=== PATIENT | female | born 1995 | race Caucasian/White ===

== ENCOUNTER → 2020-06-03 08:38 | Outpatient (CLI) | payer OTHER, SELFPAY | PROVIDERS: Visit Provider Physician Assistant | DX: J02.9 Acute pharyngitis, unspecified (principal) | CPT/HCPCS: 87070 ==

== ENCOUNTER → 2022-04-25 09:28 | Outpatient (CLI) | payer OTHER, SELFPAY ==
--- NOTE | 2022-04-25 09:30 | DI.RAD.S_ITS ---
PROCEDURE: XR CERVICAL SPINE 2V OR 3V INDICATIONS: left sided neck pain TECHNIQUE: 3 view(s) of the cervical spine were acquired. COMPARISON: None. FINDINGS: Bones: No fractures or dislocations to the T1 level. Straightening of normal cervical lordosis is seen. The lateral masses of C1 appear intact on the odontoid view. No suspicious bony lesions. Soft tissues: No prevertebral soft tissue swelling. IMPRESSION: Mild straightening of normal cervical lordosis which may be due to neck muscle spasm. No fracture or dislocation. Dictated by: Franklin Brown M.D. on 04/25/2022 at 9:55 Approved by: Franklin Brown M.D. on 04/25/2022 at 9:56
== END ==
PROVIDERS: PCP Internal Medicine; Referring Provider Registered Nurse; Visit Provider Registered Nurse
DX: M54.2 Cervicalgia (principal)
CPT/HCPCS: 72040

== ENCOUNTER 2022-08-29 11:50 | Emergency (ER) | payer OTHER, SELFPAY ==
[2022-08-29 12:01] VITALS: BP 113/76; PULSE 101; RESP 16; TEMP 36.6; O2SAT 97; BMI 27.8
[2022-08-29] MEDS: ONDANSETRON 4 MG ODT SL (12:08)
[2022-08-29 12:39] LABS: Amorphous Sediment Urine 3+; Bacteria Urine Few (2-10); Culture Indicated Urine Specimen Cultured; Mucus Urine 3+ (Negative); RBC Urine 1-5/HPF (0-5/HPF); Squamous Epithelial Cell Urine 5-10 /HPF (0-5/HPF); WBC Urine 0-1/HPF (0-5/HPF)
--- NOTE | 2022-08-29 17:19 | ED.NAVMDI ---
HPI - Nausea/Vomiting/Diarrhea <Wilbert Norman PA-C - Last Filed: 08/29/22 18:48> General Chief complaint: Nausea/Vomiting/Diarrhea Stated complaint: throwing up since yest morn, 7w preg, dehydrated, Time Seen by Provider: 08/29/22 17:12 Source: patient Mode of arrival: Ambulatory History of Present Illness HPI Narrative: 27-year-old female who is 7 weeks presents to the ED with 1 day of intractable vomiting. Patient also complains of fever, chills. Patient denies rhinorrhea, sore throat, cough, chest pain, shortness of breath. Patient complains of some left-sided abdominal cramping, denies pelvic cramping. Denies vaginal bleeding or spotting. Patient states she has been having some morning sickness, however it was much milder than this. Related Data Home Medications Medication Instructions Recorded Confirmed fenofibric acid (choline) 135 mg 135 mg PO DAILY 09/06/22 09/06/22 capsule,delayed release prenat.vits,jacque,[id number] 1 tab PO DAILY 09/06/22 09/06/22 Previous Rx's Medication Instructions Recorded ondansetron 4 mg disintegrating 4 mg PO Q8H PRN nausea and 08/29/22 tablet vomiting #30 tabs Allergies Allergy/AdvReac Type Severity Reaction Status Date / Time No Known Drug Allergies Allergy Verified 09/06/22 08:31 Review of Systems <Wilbert Norman PA-C - Last Filed: 08/29/22 18:48> Review of Systems ROS Unobtainable: All systems reviewed & are unremarkable except as noted in HPI and below Constitutional Constitutional: Reports chills, Denies fatigue, Reports fever(s), Denies frequent falls, Denies lethargy and Denies weakness Eyes Eyes: Denies change in vision, Denies eye discharge, Denies irritation and Denies loss of vision ENT Ears, Nose, Mouth, and Throat: Denies change in voice, Denies dizziness, Denies neck pain, Denies sore throat and Denies throat swelling Cardiovascular Cardiovascular: Denies chest pain, Denies irregular heart rhythm, Denies lightheadedness, Denies palpitations, Denies dyspnea, Denies dyspnea on exertion and Denies orthopnea Respiratory Respiratory: Denies cough, Denies dyspnea, Denies dyspnea on exertion and Denies wheezing Gastrointestinal Gastrointestinal: Reports abdominal pain, Denies change in bowel habits, Denies diarrhea, Reports nausea and Reports vomiting Genitourinary Genitourinary: Denies hematuria, Denies flank pain, Denies urinary incontinence and Denies urinary urgency Musculoskeletal Musculoskeletal: Denies back pain, Denies muscle weakness, Denies neck pain, Denies numbness and Denies tingling Integumentary/Breasts Skin/Breast: Denies pruritus, Denies erythema, Denies rash and Denies wounds Neurologic Neurologic: Denies behavioral changes, Denies confusion, Denies dizziness, Denies frequent falls, Denies loss of vision, Denies numbness, Denies tingling and Denies weakness Psychiatric Psychiatric: Denies anxiety, Denies behavioral changes, Denies confusion, Denies depression, Denies homicidal ideation and Denies suicidal ideation Endocrine Endocrine: Denies fatigue, Denies flushing and Denies palpitations Hematologic/Lymphatic Hematologic/Lymphatic: Denies easy bruising Allergic/Immunologic Allergic/Immunologic: Denies urticaria, Denies throat swelling and Denies wheezing Patient History <Wilbert Norman PA-C - Last Filed: 08/29/22 18:48> Medical History (Updated 09/06/22 @ 08:40 by Tayler Smalls RN) Cellulitis of right arm Heart murmur Laceration of left upper extremity Neck pain on left side Pharyngitis Sinusitis Substance abuse Visit for suture removal Surgical History (Updated 09/06/22 @ 08:36 by Tayler Smalls RN) [place] teeth extracted Family History (Updated 09/06/22 @ 09:01 by Tayler Smalls RN) Grandfather Diabetes mellitus Cancer Grandmother Diabetes mellitus Family/Other Ovarian cancer Mother Depression Anxiety Father Substance abuse Brother Substance abuse Sister Preeclampsia Social History marital status: number of children: 1 (part-time stepdaughter) household members: spouse and children (stepdaughter shared custody) lives independently: Yes caregiver/support person: Yes housing: house pets and animals: Yes (1 dog) education level: vocational 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) current occupational exposures/hazards: No special deena needs: No travel history: over 6 months ago seatbelt use: always helmet use: Yes water heater temp set < 120 deg: Yes working smoke detector in home: Yes fire extinguisher in home: Yes carbon monox detector in home: Yes firearms in home: Yes firearms unloaded and locked: Yes do you feel safe at home: Yes Smoking Status: Former smoker (Quit age 20) Tobacco: How many years used: 4 second hand exposure: Yes ( smokes outside, not in the car) alcohol intake: former (2-3 glasses wine/week when not ) substance use type: does not use during the past year weight has: increased > 10 lbs (Gained ~20 lb since stopping OCP) well-balanced diet: daily or most days daily servings fruits/ve-4 caffeine: Yes (~12 oz coffee in AM; aware of 200mg limit) Type(s) of exercise: walking frequency: 1-2 times per week Smoking Status: Former smoker alcohol intake frequency: holidays/special occasions only Substance Use Type: does not use Exam <Wilbert Norman PA-C - Last Filed: 08/29/22 18:48> Narrative Exam Narrative: Const General:?cooperative, healthy appearing and comfortable [facility] Head:?normal to inspection Ears:?hearing grossly normal bilaterally Nose:?external nose normal Face and sinus:?normal facial exam and sinuses nontender Mouth:?oral mucosae normal Throat:?posterior oropharynx normal Eyes General:?appearance normal, both eyes and all related structures Neck Neck:?normal visual inspection and no lymphadenopathy noted Resp Effort & Inspection:?normal respiratory effort Auscultation:?clear to auscultation bilaterally Cardio Rate:?regular rate Rhythm:?regular rhythm GI Abdomen is soft, nondistended, nontender to palpation. There is no CVA tenderness. Neuro General:?patient alert, patient awake and patient oriented x3 Initial Vital Signs Initial Vital Signs: Vital Signs Temperature 97.8 F 08/29/22 12:01 Pulse Rate 101 H 08/29/22 12:01 Respiratory Rate 16 08/29/22 12:01 Blood Pressure 113/76 08/29/22 12:01 Pulse Oximetry 97 08/29/22 12:01 Oxygen Delivery Method 08/29/22 12:01 <Andrea Washington MD - Last Filed: 09/06/22 21:42> Initial Vital Signs Initial Vital Signs: Vital Signs Temperature 97.8 F 08/29/22 12:01 Pulse Rate 101 H 08/29/22 12:01 Respiratory Rate 16 08/29/22 12:01 Blood Pressure 113/76 08/29/22 12:01 Pulse Oximetry 97 08/29/22 12:01 Oxygen Delivery Method 08/29/22 12:01 Course <Wilbert Norman PA-C - Last Filed: 08/29/22 18:48> Orders Ordered: Discontinued Medications Ondansetron HCl (Ondansetron 4 Mg/2 Ml Inj) 4 mg IV NOW PRN PRN Reason: Nausea And Vomiting Ondansetron HCl (Ondansetron 4 Mg Odt) 4 mg SL NOW PRN PRN Reason: Nausea And Vomiting Last Admin: 08/29/22 12:08 Dose: 4 mg Documented By: HÉCTOR Vital Signs Vital signs: Vital Signs - 8 hr 08/29/22 12:01 08/29/22 18:20 Temperature 97.8 F Pulse Rate 101 H 96 H Respiratory Rate 16 Blood Pressure 113/76 114/63 Pulse Oximetry 97 99 Oxygen Delivery Method Room Air Room Air <Andrea Washington MD - Last Filed: 09/06/22 21:42> Orders Ordered: Discontinued Medications Ondansetron HCl (Ondansetron 4 Mg/2 Ml Inj) 4 mg IV NOW PRN PRN Reason: Nausea And Vomiting Ondansetron HCl (Ondansetron 4 Mg Odt) 4 mg SL NOW PRN PRN Reason: Nausea And Vomiting Last Admin: 08/29/22 12:08 Dose: 4 mg Documented By: HÉCTOR Vital Signs Vital signs: Vital Signs - 8 hr 08/29/22 12:01 08/29/22 18:20 Temperature 97.8 F Pulse Rate 101 H 96 H Respiratory Rate 16 Blood Pressure 113/76 114/63 Pulse Oximetry 97 99 Oxygen Delivery Method Room Air Room Air MDM - Nausea/Vomiting/Diarrhea <Wilbert Norman PA-C - Last Filed: 08/29/22 18:48> Lab Data Labs: Lab Results 08/29/22 08/29/22 Range/Units 12:08 17:30 Urine RBC 1-5/hpf (0-5/HPF) Urine WBC 0-1/hpf (0-5/HPF) Ur Squamous Epith Cells 5-10 /hpf H (0-5/HPF) Amorphous Sediment 3+ Urine Bacteria Few (2-10) H (None) Urine Mucus 3+ H (Negative) Ur Culture Indicated? Specimen cultured SARS-CoV-2 (PCR) Negative (Negative) Influenza A (RT-PCR) Flu a negative (NEGATIVE) Influenza B (RT-PCR) Flu b negative (NEGATIVE) RSV (PCR) Negative (Negative) Urine Dip Bedside Urine Glucose Negative Bedside Urine Bilirubin - Negative Bedside Urine Ketone +++ 80 Urine Specific [place] 1.015 Bedside Urine Occult Blood +/- Bedside Urine pH 6.0 Bedside Urine Protein +/- 15 Bedside Urine Urobilinogen - Negative Bedside Urine Nitrite - Negative Bedside Urine Leukocytes - Negative Esterase MDM Narrative Medical decision making narrative: 27-year-old female who is 7 weeks presents to the ED with 1 day of intractable vomiting. Concern for gastroenteritis versus hyperemesis gravidarum versus viral URI versus other. Will obtain respiratory panel. Patient was given Zofran for nausea, patient is able to tolerate p.o. and drink water in the ED. Patient is currently hydrating with p.o. water. Respiratory panel negative. Patient continues to be symptom-free in the ED, is able to continue drinking water. Recommend Zofran at home if nausea recurs. Script provided. Also recommend vitamin B6, doxylamine as first-line agents. ED return precautions were discussed with patient patient verbalized understanding. ? Medical records reviewed:??No records available for review ? Disposition: see below, along with detailed discharge instructions that have been reviewed with patient as well as indications for ED re-evaluation and additional outpatient follow up <Andrea Washington MD - Last Filed: 09/06/22 21:42> Lab Data Labs: Lab Results 08/29/22 08/29/22 Range/Units 12:08 17:30 Urine RBC 1-5/hpf (0-5/HPF) Urine WBC 0-1/hpf (0-5/HPF) Ur Squamous Epith Cells 5-10 /hpf H (0-5/HPF) Amorphous Sediment 3+ Urine Bacteria Few (2-10) H (None) Urine Mucus 3+ H (Negative) Ur Culture Indicated? Specimen cultured SARS-CoV-2 (PCR) Negative (Negative) Influenza A (RT-PCR) Flu a negative (NEGATIVE) Influenza B (RT-PCR) Flu b negative (NEGATIVE) RSV (PCR) Negative (Negative) Urine Dip Bedside Urine Glucose Negative Bedside Urine Bilirubin - Negative Bedside Urine Ketone +++ 80 Urine Specific [place] 1.015 Bedside Urine Occult Blood +/- Bedside Urine pH 6.0 Bedside Urine Protein +/- 15 Bedside Urine Urobilinogen - Negative Bedside Urine Nitrite - Negative Bedside Urine Leukocytes - Negative Esterase Discharge Plan Departure Patient Disposition: Home Clinical Impression: Nausea and vomiting Instructions: DI for Hyperemesis Gravidarum, Nausea and Vomiting-Adult Activity Restrictions/Additional Instructions: You were evaluated in the ED today for intractable nausea and vomiting. Your respiratory panel was negative for influenza, COVID, RSV. Your symptoms are likely due to either nausea and vomiting of versus a stomach flu (gastroenteritis). Your nausea resolved with Zofran. You were able to drink water and keep it down in the ED. you are being prescribed Zofran to use at home if your nausea returns. There are also other options which you can try before the Zofran such as vitamin B6 10-25 mg every 6-8 hours or doxylamine 12.5 mg every 6-8 hours. Both these medicines are available [id number]. Return to the ED if you are persistently vomiting despite taking all of these nausea medications and are unable to keep down solids or liquids. Prescriptions: New ondansetron 4 mg tablet,disintegrating 4 mg PO Q8H PRN (Reason: nausea and vomiting) Qty: 30 0RF No Action prenat.vits,jacque,[id number] Tablet 1 tab PO DAILY fenofibric acid (choline) 135 mg capsule,delayed release(DR/EC) 135 mg PO DAILY Referrals: Michelle Ramirez ARNP [Primary Care Provider] - Stand Alone Forms: Patient Portal/API <Andrea Washington MD - Last Filed: 09/06/22 21:42> Cosign ED Attending Gabi Attestation: I was immediately available in the department for consultation. Documentation has been reviewed. I agree with assessment and plan.
[2022-08-29 18:18] LABS: Influenza A - CEPHEID Flu A NEGATIVE (NEGATIVE); Influenza B - CEPHEID Flu B NEGATIVE (NEGATIVE); Respiratory Syncytial Virus Negative (Negative)
[2022-08-29 18:20] VITALS: BP 114/63; PULSE 96; O2SAT 99
[2022-08-29 18:26] LABS: COVID-19 CEPHEID 4-PLEX PCR Negative (Negative)
== END 2022-08-29 18:51 | disposition home or self-care (01) ==
PROVIDERS: Emergency Medicine; Emergency Provider Student in an Organized Health Care Education/Training Program; PCP Internal Medicine
DX: O21.9 Vomiting of pregnancy, unspecified (principal); Z3A.01 Less than 8 weeks gestation of pregnancy
CPT/HCPCS: 0241U; 81003; 81015; 87086; 99283

== ENCOUNTER → 2022-09-13 15:16 | Outpatient (CLI) | payer OTHER, SELFPAY ==
[2022-09-13 20:38] LABS: Urine Chlamydia NOT DETECTED; Urine N gonorrhoeae NOT DETECTED
== END ==
PROVIDERS: PCP Internal Medicine; Visit Provider Obstetrics & Gynecology
DX: Z34.00 Encounter for supervision of normal first pregnancy, unspecified trimester (principal)
CPT/HCPCS: 87491; 87591

== ENCOUNTER → 2022-09-18 08:56 | Outpatient (CLI) | payer OTHER, SELFPAY ==
[2022-09-18 09:30] LABS: Specimen Label KIT TEST NATERA
[2022-09-18 10:08] LABS: Appearance Urine UA CLEAR; Bilirubin Urine UA NEGATIVE (NEGATIVE); Color Urine UA YELLOW; Glucose Urine UA NEGATIVE (Negative); Ketones Urine UA NEGATIVE (NEGATIVE); Leukocyte Esterase Urine UA NEGATIVE (NEGATIVE); Nitrite Urine UA NEGATIVE (Negative); Occult Blood Urine UA NEGATIVE (Negative); Protein Urine UA NEGATIVE (Negative); Specific Gravity Urine UA <=1.005 (1.000-1.035); Urobilinogen Urine UA 0.2 E.U./dL (0.2)
[2022-09-18 10:09] LABS: pH Urine UA 6.5 (4.5-8.0)
[2022-09-18 10:14] LABS: Add Manual Diff / Slide Review NO; Basophils Absolute Auto 0 /uL (0-100); Basophils Percent Auto 0.5 % (0-2); Eosinophils Absolute Auto 100 /uL (0-450); Eosinophils Percent Auto 1.2 % (2-4); Hematocrit 36.4 % (36-46); Hemoglobin 12.6 g/dL (12.0-16.0); Lymphocytes Absolute Auto 1400 /uL (1100-4500); Lymphocytes Percent Auto 25.4 % (25-40); Mean Corpuscular HGB Conc 34.6 % (30-36); Mean Corpuscular Hemoglobin 29.5 PG (26-34); Mean Corpuscular Volume 85.4 fL (80-100); Monocytes Absolute Auto 400 /uL (0-900); Neutrophils Absolute Auto 3600 /uL (1500-7000); Neutrophils Percent Auto 65.9 % (50-75); Platelet Count 237 X10^3/uL (150-400); Red Blood Cell Count 4.27 X10^6/uL (4.0-5.2); Red Cell Distribution Width 12.3 % (11.6-14.8); White Blood Cell Count 5.5 X10^3/uL (4.5-11.0)
[2022-09-18 17:08] LABS: Hepatitis B Surface Antigen NEGATIVE s/c (NEGATIVE); Rubella Antibody IgG 5.6 IU/mL (>15)
[2022-09-18 17:45] LABS: HIV 1 & 2 Ab/Ag 4th Gen Combo NEGATIVE (NEGATIVE)
[2022-09-18 18:00] LABS: Hep C Virus Ab w/Reflex Quant NEGATIVE s/c (NEGATIVE)
[2022-09-19 08:12] LABS: Varicella IgG Antibody 821 index (Immune >165)
[2022-09-20 05:12] LABS: RPR Screen Non Reactive (Non Reactive)
== END ==
PROVIDERS: PCP Internal Medicine; Referring Provider Obstetrics & Gynecology; Visit Provider Obstetrics & Gynecology
DX: Z34.00 Encounter for supervision of normal first pregnancy, unspecified trimester (principal)
CPT/HCPCS: 36415; 80055; 81003; 86787; 86803; 86850; 86900; 86901; 87086; 87389

== ENCOUNTER → 2022-10-11 09:36 | Outpatient (CLI) | payer OTHER, SELFPAY ==
[2022-10-12 11:27] LABS: Candida species Positive (Negative); Gardnerella vaginalis Negative (Negative); Trichomoas vaginalis Negative (Negative)
== END ==
PROVIDERS: PCP Internal Medicine; Visit Provider Obstetrics & Gynecology
DX: O26.899 Other specified pregnancy related conditions, unspecified trimester (principal); N89.8 Other specified noninflammatory disorders of vagina
CPT/HCPCS: 87480; 87510; 87660

== ENCOUNTER → 2022-11-07 09:00 | Outpatient (CLI) | payer OTHER, SELFPAY ==
[2022-11-09 19:07] LABS: AFP Value 32.2 ng/mL (.); Gest Age on Col Date 17.3 weeks (.); Insulin Dep Diabetes No (.); OSBR Risk 1IN 10000 (.); Results Report (.); Test Results *Screen Negative* (.)
== END ==
PROVIDERS: Obstetrics & Gynecology; PCP Internal Medicine; Referring Provider Family Medicine; Visit Provider Family Medicine
DX: Z34.02 Encounter for supervision of normal first pregnancy, second trimester (principal); Z3A.17 17 weeks gestation of pregnancy
CPT/HCPCS: 36415; 82105

== ENCOUNTER → 2022-12-08 12:54 | Outpatient (CLI) | payer OTHER, SELFPAY ==
--- NOTE | 2022-12-08 12:55 | DI.US.S_ITS ---
PROCEDURE: US OB >= 14 WEEKS FETUS INDICATIONS: ANATOMY OUTSIDE/PRIOR DATING DATA: Last menstrual period (LMP): July 09, 2022. LMP-based estimated date of delivery (DULCE): April 15, 2023. First dating scan (date and location): September 13, 2022. Estimated date of delivery (DULCE) from first dating scan: April 16, 2023. The calculations are made using the clinical DULCE of April 15, 2023. TECHNIQUE: Real-time scanning was performed of the fetus, with image documentation and biometric measurements. Endovaginal scanning: Not performed COMPARISON: None. FINDINGS: General: A single living intrauterine gestation is present. Presentation: Vertex. Placenta: Placental position is anterior , without previa. Amniotic fluid index: 11.6 cm, normal range is 5-24 cm. Single deepest vertical pocket is 4.7 cm. heart rate: 141 beats per minute. Maternal cervical canal: 3.3 cm long. Normal lower limit is 2.5 cm. biometrics: Biparietal diameter: 5.4 cm, 22 weeks and 3 days Head circumference: 19.7 cm, 21 weeks and 6 days Abdominal circumference: 17.9 cm, 22 weeks and 5 days Femur length: 3.5 cm, 21 weeks and 1 day Clinically estimated gestational age: 21 weeks and 5 days Composite gestational age from present scan: 22 weeks and 0 days Estimated weight and percentile: 471 g, correlating with approximately the 62nd percentile. Anatomic survey: Neuro: Ventricles are non-dilated at less than 10 mm. Cisterna magna is normal at 3-11 mm. Cerebellum is normal in size and morphology. Nuchal skin fold: Normal at less than 6 mm between 14-21 weeks gestational age. Face: Nose and lips, facial profile are normal. Spine: No evidence for spina bifida. Heart: 4-chambered heart is present and unremarkable. Right ventricular outflow tract not well visualized on today's study. Unremarkable appearance of the left ventricular outflow track. Diaphragm: Diaphragm is intact. Stomach: Left-sided stomach is present. Kidneys: No hydronephrosis. Normal is less than 5 mm in 2nd trimester, less than 7 mm in 3rd trimester. Cord: 3-vessel cord has orthotopic insertion. Bladder: Normal in size. Extremities: All 4 extremities identified. IMPRESSION: 1. Single living intrauterine gestation with estimated sonographic gestational age of approximately 22 weeks and 0 days versus approximately 21 weeks and 5 days based off last menstrual period. Dating is concordant. Estimated weight of approximately 471 g which correlates with the 62nd percentile based off gestational age. 2. The right ventricular outflow tract is not well visualized on this study. Otherwise, unremarkable routine second-trimester anatomy screening survey. Follow-up recommended. We strive to produce accurate, complete, and clear reports of imaging services. To assist us in improving patient care, this report was composed using standard report templates and voice recognition software. Therefore, it may contain abnormal punctuation, insertions and/or omissions. Occasional wrong-word or sound-alike substitutions may occur. Though we review the report and make efforts to correct it, we do recommend that the report be read carefully in proper context to recognize any text inaccuracies. Dictated by: Eduar Lynch M.D. on 12/08/2022 at 16:03 Approved by: Eduar Lynch M.D. on 12/08/2022 at 16:07
== END ==
PROVIDERS: PCP Internal Medicine; Referring Provider Specialist; Visit Provider Specialist
DX: Z34.02 Encounter for supervision of normal first pregnancy, second trimester (principal); Z3A.22 22 weeks gestation of pregnancy
CPT/HCPCS: 76811

== ENCOUNTER → 2023-01-19 09:10 | Outpatient (CLI) | payer OTHER, SELFPAY ==
[2023-01-19 10:32] LABS: Hematocrit 32.2 % (36-46); Hemoglobin 11.3 g/dL (12.0-16.0)
[2023-01-19 10:45] LABS: GTT (PREG) 1 Hour PP 50gm Dose 82 mg/dL (76-139)
== END ==
PROVIDERS: PCP Internal Medicine; Referring Provider Obstetrics & Gynecology; Visit Provider Obstetrics & Gynecology
DX: Z34.02 Encounter for supervision of normal first pregnancy, second trimester (principal); Z3A.26 26 weeks gestation of pregnancy
CPT/HCPCS: 36415; 82950; 85014; 85018

== ENCOUNTER 2023-03-14 16:46 | Observation (INO) | payer OTHER, SELFPAY | END 2023-03-14 17:20 | disposition home or self-care (01) | LOC: LABOR 16:48 | PROVIDERS: Admitting Provider Obstetrics & Gynecology; PCP Internal Medicine; Referring Provider Obstetrics & Gynecology; Visit Provider Obstetrics & Gynecology | DX: Z34.03 Encounter for supervision of normal first pregnancy, third trimester (principal); Z3A.35 35 weeks gestation of pregnancy | CPT/HCPCS: 59025; G0378; G0379 ==

== ENCOUNTER 2023-03-17 10:03 | Outpatient (CLI) | payer OTHER, SELFPAY ==
--- NOTE | 2023-03-17 10:41 | PM.OBTRLD ---
Visit Information Visit Information Date of evaluation: 03/17/23 Primary OB Provider: Davina Davis On-call OB Provider: Camilla Gallagher Reason for Evaluation: Yes non-stress test Comments/Additional reasons for admission: Ifeoma is a in her 38th seek. She is here for NST r/to oligohydramnios and breech presentation. She is feeling anxious; had one cup of coffee this morning. Drank 5-6 L of water yesterday. Hydrating lots. Asks for confirmation of presentation and AISHWARYA today. Vital Signs Vital Signs: Temp: 36.1 C BP: 110/60 Pulse: 139 bpm then came down to 100 bpm SpO2: 98% [facility] Medical History (Updated 03/17/23 @ 11:18 by Camilla Gallagher CNM, JAMES) Cellulitis of right arm Heart murmur Laceration of left upper extremity Neck pain on left side Pharyngitis Sinusitis Substance abuse Visit for suture removal Surgical History [place] teeth extracted Family History Grandfather Diabetes mellitus Cancer Grandmother Diabetes mellitus Family/Other Ovarian cancer Mother Depression Anxiety Father Substance abuse Brother Substance abuse Sister Preeclampsia Social History marital status: number of children: 1 (part-time stepdaughter) household members: spouse and children (stepdaughter shared custody) lives independently: Yes caregiver/support person: Yes housing: house pets and animals: Yes (1 dog) education level: vocational 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) current occupational exposures/hazards: No special deena needs: No travel history: over 6 months ago seatbelt use: always helmet use: Yes water heater temp set < 120 deg: Yes working smoke detector in home: Yes fire extinguisher in home: Yes carbon monox detector in home: Yes firearms in home: Yes firearms unloaded and locked: Yes do you feel safe at home: Yes Smoking Status: Former smoker (Quit age 20) Tobacco: How many years used: 4 second hand exposure: Yes ( smokes outside, not in the car) alcohol intake: former (2-3 glasses wine/week when not ) substance use type: does not use during the past year weight has: increased > 10 lbs (Gained ~20 lb since stopping OCP) well-balanced diet: daily or most days daily servings fruits/ve-4 caffeine: Yes (~12 oz coffee in AM; aware of 200mg limit) Type(s) of exercise: walking frequency: 1-2 times per week Review of Systems Review of Systems Narrative: Negative except as mentioned in subjective Evaluation Evaluation Baseline heart rate: 150 Variability: Moderate (11-25) monitor accelerations: Present Monitor Decelerations: Absent Contraction Frequency (minutes): 0 Category of Tracing: Reactive Diagnosis, Plan/Disposition Final Diagnosis (1) AISHWARYA (amniotic fluid index) borderline low: Status: Acute Problem details: AISHWARYA 5.66 cm with MVP 2.56 cm (2) Supervision of normal first in third trimester: Status: Acute (3) Breech presentation: Status: Acute Problem details: confirmed by bedside ultrasound (4) NST (non-stress test) reactive: Status: Acute Plan/Disposition Plan: Bedside ultrasound confirms breech presentation with vertex in R hip and spine on maternal R. AISHWARYA performed. See procedure note. NST
--- NOTE | 2023-03-17 11:13 | PM.PROC.1 ---
Procedures Date/Time Date of procedure: 03/17/23 Time of procedure: 11:00 General Procedure description: NST: Patient here for scheduled NST for oligohydramnios Baseline: 150 bpm Variability: moderate Accelerations: present Decelerations: none Impression: Reactive NST Plan: follow up with provider as scheduled AISHWARYA: total: 5.66 cm with MVP 2.59 cm Q1: 1.21 cm Q2: 1.86 cm Q3: unable to measure due to cord in pocket Q4: 2.59 cm
== END 2023-03-17 11:10 | disposition home or self-care (01) ==
LOC: OB 03-22 15:06
PROVIDERS: PCP Internal Medicine; Referring Provider Obstetrics & Gynecology; Visit Provider Obstetrics & Gynecology
DX: O41.03X0 Oligohydramnios, third trimester, not applicable or unspecified (principal); O32.1XX0 Maternal care for breech presentation, not applicable or unspecified; Z3A.36 36 weeks gestation of pregnancy
CPT/HCPCS: 59025; 76815; G0378; G0379

== ENCOUNTER 2023-03-20 14:02 | Outpatient (CLI) | payer OTHER, SELFPAY | END 2023-03-20 14:45 | disposition home or self-care (01) | LOC: OB 03-22 15:04 | PROVIDERS: PCP Internal Medicine; Referring Provider Obstetrics & Gynecology; Visit Provider Obstetrics & Gynecology | DX: O41.03X0 Oligohydramnios, third trimester, not applicable or unspecified (principal); Z3A.36 36 weeks gestation of pregnancy; Z34.03 Encounter for supervision of normal first pregnancy, third trimester | CPT/HCPCS: 59025; 87653; G0378; G0379 ==

== ENCOUNTER → 2023-03-20 16:16 | Outpatient (CLI) | payer OTHER, SELFPAY ==
[2023-03-21 15:05] LABS: Strep Grp B PCR NEG for Grp B Strep
== END ==
PROVIDERS: PCP Internal Medicine; Visit Provider Obstetrics & Gynecology
DX: Z34.03 Encounter for supervision of normal first pregnancy, third trimester (principal); Z3A.36 36 weeks gestation of pregnancy
CPT/HCPCS: 87653

== ENCOUNTER 2023-03-24 09:58 | Outpatient (CLI) | payer OTHER, SELFPAY ==
--- NOTE | 2023-04-01 17:00 | P.TNLD_ITS ---
Visit Information Visit Information Date of evaluation: 03/24/23 Primary OB Provider: Davina Davis On-call OB Provider: Davina Davis Reason for Evaluation: Yes non-stress test non-stress test reason: other (borderline AFV) [facility] Medical History (Updated 03/18/23 @ 17:10 by Davina Davis MD) Cellulitis of right arm Heart murmur Laceration of left upper extremity Neck pain on left side Pharyngitis Sinusitis Substance abuse Visit for suture removal Surgical History [place] teeth extracted Family History Grandfather Diabetes mellitus Cancer Grandmother Diabetes mellitus Family/Other Ovarian cancer Mother Depression Anxiety Father Substance abuse Brother Substance abuse Sister Preeclampsia Social History marital status: number of children: 1 (part-time stepdaughter) household members: spouse and children (stepdaughter shared custody) lives independently: Yes caregiver/support person: Yes housing: house pets and animals: Yes (1 dog) education level: vocational 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[employer]) current occupational exposures/hazards: No special deena needs: No travel history: over 6 months ago seatbelt use: always helmet use: Yes water heater temp set < 120 deg: Yes working smoke detector in home: Yes fire extinguisher in home: Yes carbon monox detector in home: Yes firearms in home: Yes firearms unloaded and locked: Yes do you feel safe at home: Yes Smoking Status: Former smoker (Quit age 20) Tobacco: How many years used: 4 second hand exposure: Yes ( smokes outside, not in the car) alcohol intake: former (2-3 glasses wine/week when not ) substance use type: does not use during the past year weight has: increased > 10 lbs (Gained ~20 lb since stopping OCP) well-balanced diet: daily or most days daily servings fruits/ve-4 caffeine: Yes (~12 oz coffee in AM; aware of 200mg limit) Type(s) of exercise: walking frequency: 1-2 times per week Evaluation Evaluation Baseline heart rate: 140 Variability: Moderate (11-25) monitor accelerations: Present Monitor Decelerations: Absent Category of Tracing: Reactive Diagnosis, Plan/Disposition Plan/Disposition Plan: 37 weeks gestation Borderline AFV Breech presentation Reactive NST OB Disposition: home
== END 2023-03-24 10:37 | disposition home or self-care (01) ==
LOC: LABOR 10:01 → OB 03-26 10:39
PROVIDERS: PCP Internal Medicine; Referring Provider Obstetrics & Gynecology; Visit Provider Obstetrics & Gynecology
DX: O41.03X0 Oligohydramnios, third trimester, not applicable or unspecified (principal); O32.1XX0 Maternal care for breech presentation, not applicable or unspecified; Z3A.36 36 weeks gestation of pregnancy
CPT/HCPCS: 59025; G0378; G0379

== ENCOUNTER 2023-03-26 12:02 | Observation (INO) | payer OTHER, SELFPAY ==
--- NOTE | 2023-04-01 17:09 | PM.PROC.1 ---
Procedures Date/Time Date of procedure: 03/26/23 Time of procedure: 13:30 General Procedure description: External Cephalic Version A nonstress test was performed and was reactive. Consent form was signed and procedure reviewed. An ultrasound was performed to confirm breech presentation with back to patient's left. An external cephalic version was attempted x4, while checking heart rate in between each try. This was unsuccessful. A nonstress test was performed at the completion of the procedure and was reactive. Complications: none
== END 2023-03-26 14:23 | disposition home or self-care (01) ==
PROVIDERS: Admitting Provider Obstetrics & Gynecology; PCP Internal Medicine; Referring Provider Obstetrics & Gynecology; Visit Provider Obstetrics & Gynecology
DX: O41.03X0 Oligohydramnios, third trimester, not applicable or unspecified (principal); O32.1XX0 Maternal care for breech presentation, not applicable or unspecified; Z3A.37 37 weeks gestation of pregnancy
CPT/HCPCS: 59025; 59412; G0378; G0379

== ENCOUNTER 2023-04-03 05:52 | Inpatient (IN) | payer OTHER, SELFPAY ==
[2023-04-03] MEDS: LACTATED RINGERS 1,000 ML 999 ML IV (06:39)
[2023-04-03 06:49] LABS: Add Manual Diff / Slide Review NO; Basophils Absolute Auto 100 /uL (0-100); Basophils Percent Auto 1.1 % (0-2); Eosinophils Absolute Auto 100 /uL (0-450); Eosinophils Percent Auto 1.9 % (2-4); Hematocrit 30.7 % (36-46); Hemoglobin 10.8 g/dL (12.0-16.0); Lymphocytes Absolute Auto 1800 /uL (1100-4500); Lymphocytes Percent Auto 23.4 % (25-40); Mean Corpuscular Hemoglobin 29.4 PG (26-34); Mean Corpuscular Volume 83.7 fL (80-100); Monocytes Absolute Auto 500 /uL (0-900); Monocytes Percent Auto 6.7 % (3-14); Neutrophils Absolute Auto 5100 /uL (1500-7000); Neutrophils Percent Auto 66.9 % (50-75); Platelet Count 194 X10^3/uL (150-400); Red Blood Cell Count 3.67 X10^6/uL (4.0-5.2); Red Cell Distribution Width 13.5 % (11.6-14.8); White Blood Cell Count 7.7 X10^3/uL (4.5-11.0)
[2023-04-03 07:26] VITALS: BP 117/72
[2023-04-03] MEDS: CITRIC ACID/SODIUM CITRATE 15 ML SOLUTION 30 ML PO (07:29)
--- NOTE | 2023-04-03 07:44 | P.HPOB_ITS ---
OB HPI Date/Time Date of admission: 04/03/23 Date Patient Seen: 04/03/23 Time Patient Seen: 07:44 History of Present Condition Chief complaint: DULCE Calculator Estimated Delivery Date Method Current WG Current Estimate 04/15/23 LMP (Certain) 38w 2d Other Estimates 04/16/23 Ultrasound #1 38w 1d Estimated Gestational Age (weeks): 38+2 : 1 Para: 0 care: good care, initiated at week # (9), number of visits (10) and pounds weight gain (31) Dating criteria OB: LMP confirmed by 1st trimester US Ultrasounds: normal 1st trimester US and normal mid trimester US Obstetrical complications: other (borderline amniotic fluid volume) Medical complications OB: none Indications Operative indications ( section): breech presentation (failed external version) Preadmission Labs Last OB Lab Results: Blood Type A Positive 04/03/23 06:25 Antibody Screen Negative 04/03/23 06:25 Hematocrit 30.7 % (36-46) L 04/03/23 06:25 Hemoglobin 10.8 g/dL (12.0-16.0) L 04/03/23 06:25 Hepatitis B Surface Antigen Negative s/c (NEGATIVE) 09/18/22 09 :27 Hepatitis C Antibody Negative s/c (NEGATIVE) 09/18/22 09:27 Rubella Antibody 5.6 IU/mL (>15) L 09/18/22 09:27 Varicella-Zoster IgG Antibody 821 index (Immune >165) 09/18/22 09:27 Glucose 1 Hour 82 mg/dL (76-139) 01/19/23 09:15 Group B Streptococcus (PCR) Neg for grp b strep 03/20/23 16:16 -: Chlamydia screen: negative, Gonorrhea screen: negative and Urine: negative -: PAP smear: Normal Genetic Screens: Cell-free DNA: Normal (normal female) and Alpha-fetoprotein: Normal External Labs -: Urine: negative Evaluation Evaluation Baseline heart rate: 135 Variability: Moderate (11-25) monitor accelerations: Present Monitor Decelerations: Absent Category of Tracing: Reactive [facility] Medical History (Updated 03/18/23 @ 17:10 by Davina Davis MD) Cellulitis of right arm Heart murmur Laceration of left upper extremity Neck pain on left side Pharyngitis Sinusitis Substance abuse Visit for suture removal Surgical History [place] teeth extracted Family History Grandfather Diabetes mellitus Cancer Grandmother Diabetes mellitus Family/Other Ovarian cancer Mother Depression Anxiety Father Substance abuse Brother Substance abuse Sister Preeclampsia Social History marital status: number of children: 1 (part-time stepdaughter) household members: spouse and children (stepdaughter shared custody) lives independently: Yes caregiver/support person: Yes housing: house pets and animals: Yes (1 dog) education level: vocational 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) current occupational exposures/hazards: No special deena needs: No travel history: over 6 months ago seatbelt use: always helmet use: Yes water heater temp set < 120 deg: Yes working smoke detector in home: Yes fire extinguisher in home: Yes carbon monox detector in home: Yes firearms in home: Yes firearms unloaded and locked: Yes do you feel safe at home: Yes Smoking Status: Former smoker Tobacco: How many years used: 4 second hand exposure: Yes ( smokes outside, not in the car) alcohol intake: former (2-3 glasses wine/week when not ) substance use type: does not use during the past year weight has: increased > 10 lbs (Gained ~20 lb since stopping OCP) well-balanced diet: daily or most days daily servings fruits/ve-4 caffeine: Yes (~12 oz coffee in AM; aware of 200mg limit) Type(s) of exercise: walking frequency: 1-2 times per week Meds Home Medications and Allergies Home Medications Medication Instructions Recorded Confirmed Type prenat.vits,jacque,[id number] 1 tab PO DAILY 09/06/22 04/03/23 History Allergies Allergy/AdvReac Type Severity Reaction Status Date / Time No Known Drug Allergies Allergy Verified 04/03/23 07:29 OB Exam Narrative Exam Narrative: Generally: Patient is sitting up in bed, no acute distress Lungs: Clear to auscultation bilaterally Cardiovascular: Regular rate and rhythm Fundal height: 41 cm Estimated weight: 8-1/2 lb Extremities: Trace edema Objective Labs 04/03/23 06:25 Labs: Laboratory Results - last 24 hr 04/03/23 04/03/23 06:25 06:25 WBC 7.7 RBC 3.67 L Hgb 10.8 L Hct 30.7 L MCV 83.7 MCH 29.4 MCHC 35.0 RDW 13.5 Plt Count 194 Neut % (Auto) 66.9 Lymph % (Auto) 23.4 L [place] % (Auto) 6.7 Eos % (Auto) 1.9 L Baso % (Auto) 1.1 Neut # (Auto) 5100 Lymph # (Auto) 1800 [place] # (Auto) 500 Eos # (Auto) 100 Baso # (Auto) 100 Blood Type A Positive Antibody Screen Negative Assessment and Plan Assessment and Plan Assessment and Plan narrative: Assessment: 27-year-old 1 para 0 at 38-,3/7 weeks gestation with breech presentation and oligohydramnios Plan: Primary low-transverse section The risks, benefits, and alternatives to the procedure were explained to the patient. The risks including bleeding, infection, injury to the bowel, bladder, or ureters. She understands these risks and agrees to proceed. A full par Q was held and consent form was signed. Time Spent with Patient Total time spent with greater than 50% in coordination of care (as documented) at patient's floor/unit and/or counseling patient:: less than 15 minutes
--- NOTE | 2023-04-03 07:54 | PM.PREOP ---
Pre-operative Note COVID-19 Criteria for continued procedure: Non-surgical alternatives not available or appropriate per current SOC Interval Note History & Physical reviewed/Exam performed by Physician: Yes Changes to H&P: No H&P completed within 30 days and has changed as indicated here:: 04/03/23
[2023-04-03] MEDS: CEFAZOLIN 2 GM/100 ML PREMIX 100 ML IV (08:10)
--- NOTE | 2023-04-03 08:26 | SUR.OPER ---
Supine on padded OR bed, head on pillow, arms secured on padded arm boards at <90 degrees abduction, legs uncrossed, safety belt at thigh, tape over blanket over lower legs.
[2023-04-03 09:28] VITALS: BP 130/62; PULSE 75; RESP 16; TEMP 36.3; O2SAT 100
--- NOTE | 2023-04-03 09:28 | P.OP_ITS ---
Operative Date/Time/Diagnoses Date of procedure: 04/03/23 Time of procedure: 09:28 Pre-op diagnosis: 38+3 weeks gestation Persistent breech presentation Oligohydramnios Post-op diagnosis: same Procedure & Clinicians Procedure: Primary low transverse C section Same procedure as scheduled: Yes Indications: 38+3 weeks gestation Breech presentation Oligohydramnios Surgeon: Davina Boyce Yes if Unassisted: No Cantilever Crane Operator: Mehdi Veloz Reason for Cantilever Crane Operator: The surgical physician assistant was necessary to retract upon entry into the abdomen and uterus. He assisted with delivery of the with fundal pressure. He assisted with closure of the uterus and abdomen with retraction, clipping of suture, and closure of the contralateral fascia. Anesthesia Type: Spinal (with Duramorph) Operative Notes Findings: Complete breech presentation Closure Type: primary Specimen(s): cord blood and placenta Intraoperative meds administered: Duramorph, Ketorolac and Pitocin Applied: Catheter (To continuous drainage) Estimated Blood Loss (mL): 600 Blood products transfused: none Procedure in detail: The patient was taken to the operating room where she was placed in the seated position. Spinal anesthesia with Duramorph was administered. She was then placed in the dorsal supine position with a leftward tilt. She was prepped and draped in the usual sterile fashion. A timeout was performed. After spinal analgesia was found to be adequate, a Pfannenstiel skin incision was made 2 fingerbreadths above the pubic symphysis and carried through to the underlying layer fascia. The fascia was nicked in the midline, and the incision extended bilaterally with the [place] scissors. The superior aspect of the fascial incision was grasped with a [place] clamps, elevated, and the underlying rectus muscles dissected off sharply and bluntly. Attention was then turned to the inferior aspect of this incision which in a similar fashion was grasped with a [place] clamps, elevated, and the underlying rectus muscles dissected off sharply and bluntly. The rectus muscles were in the midline. The peritoneum was identified, grasped between 2 hemostats, and entered sharply with the Metzenbaum scissors. This incision was extended superiorly and inferiorly with good visualization of the bladder. The bladder blade was inserted. The ves icouterine peritoneum was identified, grasped with the pickup, and entered sharply with the Metzenbaum scissors. This incision was extended bilaterally, and the bladder flap was created digitally. The bladder blade was reinserted. The lower uterine segment was incised in a transverse fashion with the scalpel. Upon entering the amniotic sac there was a scant amount of clear amniotic fluid. The was delivered by total breech extraction. A nuchal cord x 1 was reduced. The nose and mouth were suctioned with bulb suction. The cord was double clamped and cut after one minute. The was handed off to waiting RN and RT. Cord bloods were obtained. The placenta was delivered by expression. The uterus was cleared of all clots and debris. The uterine incision was repaired with #1 chromic in a running interlocking fashion, and a second layer the same suture was used for an imbricating layer. Hemostasis was achieved. The tubes and ovaries were examined and were found to be normal. The gutters were cleared of all clots and debris. The bladder flap was reapproximated using 2-0 Vicryl in a running fashion. The parietal peritoneum was closed using 2-0 Vicryl in a running fashion. The fascia was reapproximated using 0 Vicryl in a running fashion. The subcutaneous layer was copiously irrigated with warm normal saline. 5 simple interrupted sutures of 3-0 Vicryl were placed to reapproximate the subcutaneous layer. The skin was closed with 4-0 Monocryl in a subcuticular fashion. Steri-Strips were placed. An Aquacel dressing was placed. The uterus was expressed of a small amount of old blood. Sponge, lap, and instrument counts were correct x-2. The patient tolerated the procedure well, and was taken to PACU in stable condition. Complications: none [place] Baby 1: Infant Gender: Female Presentation: breech Details: complete Placental Delivery Description: Expressed score (1 min): 6 score (5 min): 8 weight: 8 lb 5 oz Post-operative Condition: stable Disposition: PACU Aftercare: routine postop
[2023-04-03 09:33] VITALS: BP 124/67; PULSE 80; RESP 15; O2SAT 99
[2023-04-03 09:38] VITALS: BP 104/51; PULSE 68; RESP 22; O2SAT 99
[2023-04-03] MEDS: ONDANSETRON 4 MG/2 ML INJ IV (12:28)
[2023-04-03 14:20] LABS: Add Manual Diff / Slide Review NO; Basophils Absolute Auto 0 /uL (0-100); Basophils Percent Auto 0.4 % (0-2); Eosinophils Absolute Auto 0 /uL (0-450); Eosinophils Percent Auto 0.4 % (2-4); Hematocrit 29.1 % (36-46); Hemoglobin 10.1 g/dL (12.0-16.0); Lymphocytes Absolute Auto 1400 /uL (1100-4500); Lymphocytes Percent Auto 13.2 % (25-40); Mean Corpuscular HGB Conc 34.8 % (30-36); Mean Corpuscular Volume 83.2 fL (80-100); Monocytes Absolute Auto 900 /uL (0-900); Monocytes Percent Auto 8.5 % (3-14); Neutrophils Absolute Auto 8200 /uL (1500-7000); Neutrophils Percent Auto 77.5 % (50-75); Platelet Count 180 X10^3/uL (150-400); Red Cell Distribution Width 13.9 % (11.6-14.8); White Blood Cell Count 10.6 X10^3/uL (4.5-11.0)
[2023-04-03] MEDS: ACETAMINOPHEN 325 MG TABLET 650 MG PO ×2 (14:20→21:00)
[2023-04-03] MEDS: KETOROLAC 30 MG/ML VIAL IV ×2 (16:10→21:51)
[2023-04-03] MEDS: LANOLIN OINT 7 GM 1 APPLIC TOP (21:02)
[2023-04-04] MEDS: ACETAMINOPHEN 325 MG TABLET 650 MG PO ×4 (02:32→21:03)
[2023-04-04] MEDS: KETOROLAC 30 MG/ML VIAL IV (03:23)
[2023-04-04] MEDS: IBUPROFEN 600 MG TABLET PO ×3 (09:01→21:03)
[2023-04-04] MEDS: DOCUSATE 100 MG CAPSULE PO (09:02)
[2023-04-04] MEDS: PRENATAL VIT,CALC/IRON/FOLIC 1 TABLET 1 TAB PO (09:02)
[2023-04-05] MEDS: IBUPROFEN 600 MG TABLET PO ×2 (03:07→09:00)
[2023-04-05] MEDS: ACETAMINOPHEN 325 MG TABLET 650 MG PO ×2 (03:07→09:00)
[2023-04-05 09:00] VITALS: BP 131/78; PULSE 100; RESP 16; TEMP 36.3
[2023-04-05] MEDS: PRENATAL VIT,CALC/IRON/FOLIC 1 TABLET 1 TAB PO (09:00)
[2023-04-05] MEDS: DOCUSATE 100 MG CAPSULE PO (09:01)
[2023-04-05] MEDS: MEASLES,MUMPS,RUBELLA VACC/PF 0.5 ML VIAL SUBCUT (11:17)
--- NOTE | 2023-04-09 11:55 | P.PNOB_ITS ---
Subjective - OB Subjective Patient comments: no complaints, pain well controlled, tolerating diet and flatus present baby status: doing well and nursing well [place] feeding status: exclusively breast feeding Date Patient Seen: 04/04/23 Time Patient Seen: 13:15 Interval history: Patient is a 27-year-old 1 para 1 postop day # 1 status post primary low-transverse section secondary to breech presentation. Exam Vital Signs (past 8 hours): Oxygen Delivery Method Room Air Narrative Exam Narrative: Generally: Patient is sitting up in bed, holding infant, no acute distress Lungs: Clear to auscultation bilaterally Cardiovascular: Regular rate and rhythm Fundus: Firm at U -1 Incision: Clean dry and intact with Aquacel dressing Extremities: Trace edema, negative [place] Objective Labs 04/03/23 14:10 Assessment & Plan Plan day: 1 plan OB: routine postop care Time Spent With Patient Time: Total time spent is greater than 50% in coordination of care (as documented) at patient's floor/unit and/or counseling patient: Time with patient: 15-24 minutes
--- NOTE | 2023-04-09 11:57 | PM.OBDS.1 ---
Discharge Providers Provider Date of admission: 04/03/23 05:52 Discharge Date: 04/05/23 Primary care physician: JAMES Dolan Consults: 04/03/23 11:54 Consult to Cryogenics Repairer Routine Comment: Discharge provider: Davina Davis MD Summary Hospital Course Date Patient Seen: 04/05/23 Time Patient Seen: 13:00 Diagnoses: 38 +2 weeks' gestation Oligohydramnios Persistent breech presentation Primary low-transverse section Hospital Course: Patient is a 27-year-old 1 para 1 who underwent a primary low-transverse section on April 03, 2023, without complication. Her postoperative course was unremarkable. She was discharged home on April 05, 2023. She was able to void without the catheter on postop day # 1. Her pain was well controlled. She was ambulating independently. She was tolerating a diet. She was passing flatus. was going well. Peripartum Data Delivery Method: Section Laceration Description: None Episiotomy description: None Procedures: Spinal anesthesia Primary low-transverse section complications: none [place] 1: Gender: Female Status at Discharge Cognitive/behavioral status at discharge: oriented Functional status at discharge: independent ambulation Overall status at discharge: patient is progressing back to baseline Time Spent with Patient Time attestation: Total time spent providing and/or coordinating discharge services: Time spent: Less than 30 minutes Objective Labs 04/03/23 14:10 Exam Vital Signs (past 8 hours): Oxygen Delivery Method Room Air Narrative Exam Narrative: Generally: Patient walking around in room, no acute distress Fundus: Firm at U -1 Incision: Clean dry and intact with Aquacel dressing Extremities: Trace edema, negative Homans Discharge Plan Discharge Plan Patient Disposition: Home Provider Discharge Comment: Call with fever, chills, redness or drainage around the incision, or bleeding vaginally more than a pad in an hour Ibuprofen 600 mg every 6 hours as needed Tylenol 650 mg every 6 hours as needed Continue vitamins Stool softeners until bowel returns to normal Push oral fluids Discharge orders & Medications Prescriptions: New oxycodone 5 mg tablet 5 mg PO Q4H PRN (Reason: pain) Qty: 14 0RF Continued prenat.vits,jacque,[id number] Tablet 1 tab PO DAILY Follow up/Referrals: Davina Davis MD [Physician] - (You have a 1 week dressing removal and incision check appointment scheduled with Dr. Davis on April 10 @ 9:15am. You have a 6 week follow up appointment scheduled with Dr. Davis on May 15 @3:00pm. *Check in for both appointments 15 minutes early*) Diet/Activity/Treatments Diet: Regular Activity: No heavy lifting, nothing more than the baby for the first 2 weeks Nothing in the vagina for 6 weeks Skin/Wound/Dressing Care Report to your healthcare provider any signs of infection, such as:: chills, fever, increased pain, unusual drainage and unusual redness Dressing: Do not remove Visit Report/Discharge Packet Instructions: DI for , DI for Prescription Opioid Use Stand Alone Forms: Discharge: Care, Patient Portal/API, Stroke Signs & Symptoms Discharge Data Primary Care Provider: Michelle Ramirez Discharges patient from system. Discharge Date/Time: 04/05/23 12:35
== END 2023-04-05 12:35 | disposition home or self-care (01) | DRG 787 ==
PROVIDERS: Admitting Provider Obstetrics & Gynecology; PCP Internal Medicine; Referring Provider Obstetrics & Gynecology; Visit Provider Obstetrics & Gynecology
PROC: 10D00Z1 Extraction of Products of Conception, Low, Open Approach (ICD-10-PCS; CPT 59514; principal; 2023-04-03 07:45)
DX: O64.1XX0 Obstructed labor due to breech presentation, not applicable or unspecified (principal); O41.03X0 Oligohydramnios, third trimester, not applicable or unspecified; Z3A.38 38 weeks gestation of pregnancy; Z37.0 Single live birth
CPT/HCPCS: 36415; 59050; 59510; 59514; 85025; 86850; 86900; 86901; J0690; J1885; J2274; J2405; J3010

== ENCOUNTER 2023-06-15 19:47 | Emergency (ER) | payer OTHER, SELFPAY ==
[2023-06-15 19:56] VITALS: BP 136/70; PULSE 73; RESP 17; TEMP 36.9; O2SAT 97; BMI 29.0
--- NOTE | 2023-06-15 20:18 | ED_ITS ---
HPI - General Adult General Chief complaint: Abdominal Pain Stated complaint: abd and back pain Time Seen by Provider: 06/15/23 20:06 Source: patient Mode of arrival: Ambulatory History of Present Illness HPI narrative: 28-year-old female. Is 10 weeks from a scheduled secondary to breech presentation. No other complications from the or the delivery. She is . Earlier this evening she had a fairly sudden onset of epigastric abdominal pain that radiated to her back. The pain is now gone. It was not related to eating. No fevers. No urinary symptoms. No change in bowel habits. No vaginal bleeding. She contacted the OB doctor on- call who advised that she come to the emergency department for concern of potential gallbladder pathology. Other than the no other abdominal surgeries. Related Data Home Medications Medication Instructions Recorded Confirmed prenat.vits,jacque,[id number] 1 tab PO DAILY 09/06/22 05/15/23 Allergies Allergy/AdvReac Type Severity Reaction Status Date / Time No Known Drug Allergies Allergy Verified 04/10/23 09:38 Review of Systems Constitutional Constitutional: Reports system reviewed and no additional complaints, except as documented Cardiovascular Cardiovascular: Reports system reviewed and no additional complaints, except as documented Respiratory Respiratory: Reports system reviewed and no additional complaints, except as documented Gastrointestinal Gastrointestinal: Reports system reviewed and no additional complaints, except as documented Genitourinary Genitourinary: Reports system reviewed and no additional complaints, except as documented Integumentary/Breasts Skin/Breast: Reports system reviewed and no additional complaints, except as documented Neurologic Neurologic: Reports system reviewed and no additional complaints, except as documented Patient History Medical History Substance abuse Heart murmur Neck pain on left side Sinusitis Visit for suture removal Laceration of left upper extremity Cellulitis of right arm Pharyngitis Surgical History [place] teeth extracted Family History Grandfather Diabetes mellitus Cancer Grandmother Diabetes mellitus Family/Other Ovarian cancer Mother Depression Anxiety Father Substance abuse Brother Substance abuse Sister Preeclampsia Social History (Reviewed 06/15/23 @ 20:30 by MISAEL Miller marital status: number of children: 1 (part-time stepdaughter) household members: spouse and children (stepdaughter shared custody) lives independently: Yes caregiver/support person: Yes housing: house pets and animals: Yes (1 dog) education level: vocational 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) current occupational exposures/hazards: No special deena needs: No travel history: over 6 months ago seatbelt use: always helmet use: Yes water heater temp set < 120 deg: Yes working smoke detector in home: Yes fire extinguisher in home: Yes carbon monox detector in home: Yes firearms in home: Yes firearms unloaded and locked: Yes do you feel safe at home: Yes Smoking Status: Former smoker Tobacco: How many years used: 4 second hand exposure: Yes ( smokes outside, not in the car) alcohol intake: former (2-3 glasses wine/week when not ) substance use type: does not use during the past year weight has: increased > 10 lbs (Gained ~20 lb since stopping OCP) well-balanced diet: daily or most days daily servings fruits/ve-4 caffeine: Yes (~12 oz coffee in AM; aware of 200mg limit) Type(s) of exercise: walking frequency: 1-2 times per week Smoking Status: Former smoker alcohol intake frequency: holidays/special occasions only Substance Use Type: does not use Exam Initial Vital Signs Initial Vital Signs: Vital Signs Temperature 98.5 F 06/15/23 19:56 Pulse Rate 73 06/15/23 19:56 Respiratory Rate 17 06/15/23 19:56 Blood Pressure 136/70 06/15/23 19:56 Pulse Oximetry 97 06/15/23 19:56 Oxygen Delivery Method Room Air 06/15/23 19:56 Const General: cooperative and healthy appearing HENMS Head: normal to inspection and normocephalic Resp Effort & Inspection: normal respiratory effort Auscultation: clear to auscultation bilaterally Cardio Rate: regular rate Rhythm: regular rhythm GI Inspection: normal to inspection and distended Palpation: soft, No firm, No guarding and No tender Skin General: no rashes or lesions noted Neuro General: patient alert and patient awake Course Orders Ordered: ED Orders 06/15/23 20:16 Complete Blood Count AUTO DIFF Stat Comprehensive Metabolic Panel Stat Lipase Stat 06/15/23 20:18 US abdomen limited Stat Ondansetron HCl (Ondansetron 4 Mg Odt) 4 mg PO NOW PRN PRN Reason: Nausea And Vomiting Ondansetron HCl (Ondansetron 4 Mg/2 Ml Inj) 4 mg IV NOW PRN PRN Reason: Nausea And Vomiting Vital Signs Vital signs: Vital Signs - 8 hr 06/15/23 19:56 Temperature 98.5 F Pulse Rate 73 Respiratory Rate 17 Blood Pressure 136/70 Pulse Oximetry 97 Oxygen Delivery Method Room Air Medical Decision Making Medical Records Medical records reviewed: Yes I reviewed the patient's medical records. Lab Data Lab results reviewed: Yes I reviewed the patient's lab results. 06/15/23 20:16 06/15/23 20:16 Labs: Lab Results 06/15/23 Range/Units 20:16 WBC 6.9 (4.5-11.0) X10^3/uL RBC 4.29 (4.0-5.2) X10^6/uL Hgb 11.9 L (12.0-16.0) g/dL Hct 35.5 L (36-46) % MCV 82.6 (80-100) fL MCH 27.8 (26-34) PG MCHC 33.7 (30-36) % RDW 14.6 (11.6-14.8) % Plt Count 238 (150-400) X10^3/uL Neut % (Auto) 50.4 (50-75) % Lymph % (Auto) 38.7 (25-40) % [place] % (Auto) 7.0 (3-14) % Eos % (Auto) 2.4 (2-4) % Baso % (Auto) 1.5 (0-2) % Neut # (Auto) 3500 (4470-0708) /uL Lymph # (Auto) 2700 (8189-4552) /uL [place] # (Auto) 500 (0-900) /uL Eos # (Auto) 200 (0-450) /uL Baso # (Auto) 100 (0-100) /uL Sodium 138 (137-145) mmol/L Potassium 3.7 (3.4-5.1) mmol/L Chloride 101 (98-107) mmol/L Carbon Dioxide 29 (22-32) mmol/L BUN 20 H (7-17) mg/dL Creatinine 0.61 (0.52-1.04) mg/dL Estimated GFR > 60 (>60) mL/min BUN/Creatinine Ratio 32.8 H (6-22) Glucose 104 H (70-100) mg/dL Calcium 9.7 (8.4-10.2) mg/dL Total Bilirubin 0.7 (0.2-1.3) mg/dL AST 28 (14-36) IU/L ALT 24 (<35) IU/L Alkaline Phosphatase 72 (38-126) U/L Total Protein 7.9 (6.3-8.2) g/dL Albumin 2.7 L (3.5-5.0) g/dL Globulin 5.2 H (1.7-4.1) g/dL Albumin/Globulin Ratio 0.5 L (1.0-2.8) Lipase 114 (23-300) U/L Point of Care Testing Test Results Negative Urine Dip Bedside Urine Glucose Negative Bedside Urine Bilirubin - Negative Bedside Urine Ketone - Negative Urine Specific [place] 1.01 Bedside Urine Occult Blood - Negative Bedside Urine pH 6.5 Bedside Urine Protein - Negative Bedside Urine Urobilinogen - Negative Bedside Urine Nitrite - Negative Bedside Urine Leukocytes - Negative Esterase Point of care testing: Point of Care Testing Test Results Negative Urine Dip Bedside Urine Glucose Negative Bedside Urine Bilirubin - Negative Bedside Urine Ketone - Negative Urine Specific [place] 1.01 Bedside Urine Occult Blood - Negative Bedside Urine pH 6.5 Bedside Urine Protein - Negative Bedside Urine Urobilinogen - Negative Bedside Urine Nitrite - Negative Bedside Urine Leukocytes - Negative Esterase Imaging Data US - abdomen: Radiologist's Impression: PROCEDURE: US ABDOMEN LIMITED INDICATIONS: RUQ PAIN TECHNIQUE: Real-time focused scanning was performed of the abdomen, with image documentation. COMPARISON: None. FINDINGS: The gallbladder is normal without stones, sludge, wall thickening, or pericholecystic fluid. The extrahepatic common duct is normal caliber measuring 2.3. No visible intrahepatic biliary dilatation. The liver demonstrates mildly echogenic parenchyma diffusely. The visible portions of the proximal pancreas, and right kidney appear grossly normal. No visible free fluid in the right upper quadrant. IMPRESSION: 1. Normal gallbladder. 2. Mild hepatic steatosis. MDM Narrative Medical decision making narrative: Labs and ultrasound showed no acute pathology. She is completely asymptomatic since being here in the ER. She is a nonsurgical abdomen. Unsure the exact etiology. There is a potential that she had a gallstone and she passed it which caused her discomfort that has now resolved. There is also possibility of other etiologies such as esophageal spasm. There was no indication today for admission to the hospital, no indication for surgical consultation, no indication for CT scanning. Will discharge patient home with return precautions. She expressed understanding and agreement with plan. Discharge Plan Departure Patient Disposition: Home Clinical Impression: Abdominal pain Instructions: DI for Abdominal Pain-Adult Activity Restrictions/Additional Instructions: Recommend that you continue to breastfeed is normal. No restrictions on any of your activity or diet. Keep all of your scheduled medical appointments. Return to the emergency department for new or worsening symptoms. Prescriptions: No Action prenat.vits,jacque,[id number] Tablet 1 tab PO DAILY Referrals: Michelle Ramirez ARNP [Primary Care Provider] - Stand Alone Forms: Patient Portal/API
[2023-06-15 20:23] LABS: Add Manual Diff / Slide Review NO; Basophils Absolute Auto 100 /uL (0-100); Basophils Percent Auto 1.5 % (0-2); Eosinophils Absolute Auto 200 /uL (0-450); Eosinophils Percent Auto 2.4 % (2-4); Hematocrit 35.5 % (36-46); Hemoglobin 11.9 g/dL (12.0-16.0); Lymphocytes Absolute Auto 2700 /uL (1100-4500); Lymphocytes Percent Auto 38.7 % (25-40); Mean Corpuscular HGB Conc 33.7 % (30-36); Mean Corpuscular Hemoglobin 27.8 PG (26-34); Mean Corpuscular Volume 82.6 fL (80-100); Monocytes Absolute Auto 500 /uL (0-900); Neutrophils Absolute Auto 3500 /uL (1500-7000); Neutrophils Percent Auto 50.4 % (50-75); Platelet Count 238 X10^3/uL (150-400); Red Blood Cell Count 4.29 X10^6/uL (4.0-5.2); Red Cell Distribution Width 14.6 % (11.6-14.8); White Blood Cell Count 6.9 X10^3/uL (4.5-11.0)
[2023-06-15 20:36] LABS: Alanine Aminotransferase 24 IU/L (<35); Albumin 2.7 g/dL (3.5-5.0); Albumin Globulin Ratio 0.5 (1.0-2.8); Alkaline Phosphatase 72 U/L (38-126); Aspartate Aminotransferase 28 IU/L (14-36); BUN Creatinine Ratio 32.8 (6-22); Bilirubin Total 0.7 mg/dL (0.2-1.3); Blood Urea Nitrogen 20 mg/dL (7-17); Calcium 9.7 mg/dL (8.4-10.2); Carbon Dioxide 29 mmol/L (22-32); Chloride 101 mmol/L (98-107); Estimated Glomerular Filt Rate > 60 mL/min (>60); Globulin 5.2 g/dL (1.7-4.1); Glucose 104 mg/dL (70-100); HEMOLYSIS 41 (0-50); Lipase 114 U/L (23-300); Potassium 3.7 mmol/L (3.4-5.1); Sodium 138 mmol/L (137-145); Total Protein 7.9 g/dL (6.3-8.2)
[2023-06-15 21:46] VITALS: BP 107/64; PULSE 70; RESP 18; O2SAT 99
== END 2023-06-15 21:47 | disposition home or self-care (01) ==
PROVIDERS: Emergency Provider Emergency Medicine; PCP Internal Medicine
DX: R10.13 Epigastric pain (principal)
CPT/HCPCS: 36415; 76705; 80053; 81003; 81025; 83690; 85025; 99283; 99284

== ENCOUNTER → 2023-07-10 08:13 | Outpatient (CLI) | payer OTHER, SELFPAY ==
[2023-07-10 10:03] LABS: Influenza A - CEPHEID Flu A NEGATIVE (NEGATIVE); Influenza B - CEPHEID Flu B NEGATIVE (NEGATIVE); Respiratory Syncytial Virus Negative (Negative)
[2023-07-10 10:06] LABS: COVID-19 CEPHEID 4-PLEX PCR Negative (Negative)
== END ==
PROVIDERS: PCP Internal Medicine; Visit Provider Physician Assistant
DX: J02.9 Acute pharyngitis, unspecified (principal); R05.1 Acute cough
CPT/HCPCS: 0241U; 87070; 87077; 87147